=== PATIENT | female | born 1955 | race Caucasian/White ===

== ENCOUNTER 2022-09-21 09:13 | Outpatient (CLI) | payer MEDICARE, BC, SELFPAY ==
[2022-09-21 14:43] LABS: Cholesterol* 242 mg/dL (90-199); HDL Cholesterol* 81 mg/dL (>=50); LDL Cholesterol Calculated 136 mg/dL (<100); Triglycerides* 125 mg/dL (40-149)
== END 2022-09-21 09:14 | disposition home or self-care (01) ==
LOC: FRMREF 09:14
PROVIDERS: PCP Family Medicine; Visit Provider Family Medicine
DX: E78.5 Hyperlipidemia, unspecified (principal)
CPT/HCPCS: 80061

== ENCOUNTER 2023-10-16 08:40 | Outpatient (CLI) | payer MEDICARE, BC, SELFPAY ==
[2023-10-16] MEDS: REGADENOSON 0.4 MG/5 ML SYRINGE IVP (09:38)
[2023-10-16] MEDS: SODIUM CHLORIDE 0.9 % (FLUSH) 10 ML SYRINGE IVF (09:38)
[2023-10-16 10:10] VITALS: BP 186/98; PULSE 102
--- NOTE | 2023-10-16 10:46 | W.PM.STED ---
Stress Test Note Date Date of test: 10/16/23 Providers Primary care provider: Fay Pittman Stress test physician: Lars Moon Stress Test Note Stress test ordered: Lexiscan Indication for test: Chest pain Stress test medicine: Lexiscan Results discussion: Patient is a very nice 68-year-old female presents for the above test, cardiac stress test medical history form is reviewed entirely. Informed consent is obtained from the patient for the test after the risks benefits and side effects discussed in detail. Pretest EKG shows normal sinus rhythm, with ST wave changes ventricular rate is 84, rhythm is sinus. Blood pressure elevated at 163/109. Inferior ST wave depression of 1-2 mm is noted had baseline, standard Lexiscan protocol is done over a 5 minute. , maximum heart rate was 116, with a target predicted of 88%. Maximum blood pressure 186 on 98. She was asymptomatic and had no complaints. No significant worsening of her baseline abnormality of ST wave is notable. No dysrhythmias Impression: Negative electrographic portion of Lexiscan, baseline ST wave changes persisted. Follow up suggested: Await nuclear images, these will be read by nuclear Medicine, clinical correlation with these will be needed. Patient left this testing facility in good condition.
== END 2023-10-16 08:41 | disposition home or self-care (01) ==
LOC: STRESS 08:40
PROVIDERS: PCP Family Medicine; Visit Provider Family Medicine
DX: R07.9 Chest pain, unspecified (principal)
CPT/HCPCS: 78452; 93016; 93017; A9500; J2785

== ENCOUNTER 2024-04-24 10:55 | Outpatient (CLI) | payer MEDICARE, BC, SELFPAY | END 2024-04-24 10:56 | disposition home or self-care (01) | LOC: NFLDREF 04-27 09:27 | PROVIDERS: PCP Family Medicine; Referring Provider Family Medicine; Visit Provider Family Medicine | DX: I10 Essential (primary) hypertension (principal); E78.5 Hyperlipidemia, unspecified; M19.90 Unspecified osteoarthritis, unspecified site; Z11.59 Encounter for screening for other viral diseases | CPT/HCPCS: 80053; 80061; 82043; 82570; 86803 ==

== ENCOUNTER 2024-04-27 19:07 | Emergency (ER) | payer MEDICARE, BC, SELFPAY ==
[2024-04-27] VITALS (11 sets, daily range): BP systolic 138–188; BP diastolic 97–109; PULSE 93–122; RESP 20; TEMP 37; O2SAT 93–97; BMI 39.9
--- NOTE | 2024-04-27 19:30 | CRLHL7_ITS ---
For Patients: As a result of the Century Cures Act, medical imaging exams and procedure reports are released immediately into your electronic medical record. You may view this report before your referring provider. If you have questions, please contact your health care provider. INDICATION: Chest pain. TECHNIQUE: Portable AP chest. COMPARISON: None. FINDINGS: Lungs are clear. Normal heart size and pulmonary vascularity. No pleural effusion. No pneumothorax. IMPRESSION: Normal chest. Dictated by Dao Byrd MD @ 04/27/2024 8:13:25 PM (Electronically Signed)
--- NOTE | 2024-04-27 19:31 | ED_ITS ---
HPI - General Adult General Date Seen: 04/27/24 <Jenna Restrepo MD - Last Filed: 04/30/24 15:49> Chief complaint: Arrhythmia/Palpitations <Jenna Restrepo MD - Last Filed: 04/30/24 15:49> Stated complaint: heart issue <Jenna Restrepo MD - Last Filed: 04/30/24 15:49> Time Seen by Provider: 04/27/24 19:19 <Jenna Restrepo MD - Last Filed: 04/30/24 15:49> Source: patient <Jenna Restrepo MD - Last Filed: 04/30/24 15:49> Mode of arrival: ambulatory <Jenna Restrepo MD - Last Filed: 04/30/24 15:49> Limitations: no limitations <Jenna Restrepo MD - Last Filed: 04/30/24 15:49> History of Present Illness HPI narrative: Patient is a 68-year-old woman who presents for the evaluation of chest pain. She tells me that she had just finished [place] food for dinner, she stood up to clear the table and developed sudden onset of a band of pain around her lower chest, sensation of bruising in her mid chest and more burning pain that seemed to spread through both arms and up into her neck and both sides of her jaw. They immediately got in the car and came here and within 15 minutes or so symptoms had completely resolved and she now feels back to normal. She says she was also dizzy at the time, does not report pleuritic pain or shortness of breath. No history of similar pain. She has been in the midst of some adjustments of her blood pressure medicines, she says that she was on propanolol for a very long time and feels that her blood pressure was well controlled but her doctor has been trying to take her off of that and switch her to losartan which does not seem to be working as well. The dose was increased a couple of days ago and she is now completely off the propanolol. She had a stress test earlier this year which was normal. She says she was told 5 years ago that she was developing heart failure but more recently was told by the cigarette packing machine operator that he was not sure where that information came from that she had no evidence of heart failure and that her heart looked fine. She denies lower extremity swelling or pain, fevers or cough, abdominal or back pain, vomiting. She did have some diarrhea couple of days ago which she says was prompted by taking c holestyramine and Metamucil at the same time. No bloody stools. She does not smoke. She says that her mom had blood clots in her legs, she also had a stroke, she reports that her brother had clots in his heart requiring stents. She is status post cholecystectomy and hysterectomy. Medications reviewed, including baby aspirin daily. <Jenna Restrepo MD - Last Filed: 04/30/24 15:49> Related Data Home medications: Previous Rx's ?Medication ?Instructions ?Recorded fluticasone propionate 50 1 spray intranasal QDAY #16 grams 02/04/24 mcg/actuation nasal spray,suspension (Allergy Relief (fluticasone)) aspirin 81 mg tablet,delayed 81 mg PO QDAY #90 tabs 03/31/24 release celecoxib 100 mg capsule (Celebrex) 100 - 200 mg (1 - 2 x 100 mg) PO 03/31/24 BID PRN pain #90 caps cholestyramine (with sugar) 4 gram 4 g PO BID #378 grams 03/31/24 oral powder pravastatin 40 mg tablet 40 mg PO QPM #90 tabs 03/31/24 amlodipine 5 mg tablet 5 mg PO QDAY HTN #90 tabs 04/29/24 hydroxyzine HCl 25 mg tablet 25 mg PO QHS #14 tabs 04/29/24 propranolol 40 mg tablet 40 mg PO BID PRN tachycardia #60 04/29/24 tabs <Jenna Restrepo MD - Last Filed: 04/30/24 15:49> Allergies/adverse reactions: Allergies Allergy/AdvReac Type Severity Reaction Status Date / Time hydrocodone Allergy Intermediate Vomiting Verified 04/24/24 10:32 losartan Allergy Intermediate Cough Verified 04/24/24 10:32 metoprolol Allergy Intermediate diaphoresis Verified 04/24/24 10:32 lisinopril Allergy Mild Cough Verified 04/24/24 10:32 boland juice Allergy Severe Difficulty Uncoded 04/24/24 10:32 Breathing Hydrochlorothiazide / Allergy Unknown Dizziness Uncoded 04/24/24 10:32 triamterene <Jenna Restrepo MD - Last Filed: 04/30/24 15:49> Review of Systems Status of ROS: Reports: 10 or more systems reviewed and unremarkable except as noted in History and below <Jenna Restrepo MD - Last Filed: 04/30/24 15:49> [facility] Medical History: Medical History Post herpetic neuralgia ?B02.29 - Other postherpetic nervous system involvement (ICD-10) Tubular adenoma of colon ?D12.6 - Benign neoplasm of colon, unspecified (ICD-10) Migraine headache (04/22/10) ?G43.909 - Migraine, unspecified, not intractable, without status migrainosus (ICD-10) Mammogram declined ?Z53.20 - Procedure and treatment not carried out because of patient's decision for unspecified reasons (ICD-10) 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) ?Z91.89 - Other specified personal risk factors, not elsewhere classified (ICD-10) History of benign breast biopsy (08/02/10) ?Z98.890 - Other specified postprocedural states (ICD-10) History of bacterial pneumonia ?Z87.01 - Personal history of pneumonia (recurrent) (ICD-10) <Jenna Restrepo MD - Last Filed: 04/30/24 15:49> Surgical History: Surgical History History of hysterectomy (04/22/10) ?Z90.710 - Acquired absence of both cervix and uterus (ICD-10) History of colonoscopy with polypectomy ?Z98.890 - Other specified postprocedural states (ICD-10) ?Z86.010 - Personal history of colonic polyps (ICD-10) History of cholecystectomy (04/22/10) ?Z90.49 - Acquired absence of other specified parts of digestive tract (ICD- 10) History of appendectomy (08/02/10) ?Z90.49 - Acquired absence of other specified parts of digestive tract (ICD- 10) <Jenna Restrepo MD - Last Filed: 04/30/24 15:49> Family History: Family History Mother Breast cancer Stroke Father Coronary artery disease <Jenna Restrepo MD - Last Filed: 04/30/24 15:49> Social History: Social History Narrative: Does not use illicit drugs Former smoker Occasional alcohol consumption What is your current living situation?: I presently have a place to live Problems where you live: no known problems In the past 12 months, utilities in danger of being shut off: no In past 12 months, lack of transportation kept you from medical appts, meetings, work, or getting things needed for daily living: no In the past 12 mos, have been you worried that your food would run out before you had money to buy more?: never true In the past 12 mos, the food you bought just didn't last and you didn't have money to buy more?: never true Smoking Status: Never smoker How often do you have a drink containing alcohol: 4 or more times a week AUDIT-C Alcohol total score: 4 Non-prescribed substance use: denies use How often does anyone, including family, friends and others, physically hurt you : never How often does anyone, including family, friends and others, insult or talk down to you: never How often does anyone, including family, friends and others, threaten you with harm: never How often does anyone, including family, friends and others, scream or curse at you: never Little interest or pleasure in doing things: not at all Feeling down, depressed, or hopeless: not at all <Jenna Restrepo MD - Last Filed: 04/30/24 15:49> Exam Narrative: Exam Narrative: Vital signs as noted above. In general, an alert, well-appearing patient. Head: Normocephalic, atraumatic. Eyes: Pupils are equal reactive. Extraocular movements are full. Conjunctivae are normal. ENT: Mucous membranes are moist. Throat is normal. Neck: Supple without lymphadenopathy. Heart: Mildly tachycardic and regular, no murmur. Lungs: Clear bilaterally. No increased work of breathing, crackles or wheezes. Abdomen: Soft and nontender. No organomegaly. Extremities: Well perfused. No edema. No calf tenderness. Pulses intact. Neurologic: Patient is alert and oriented to person and place. Speech is fluent. Face is symmetric. Moves all extremities equally. Affect: Normal. Skin: Warm and dry. Well perfused. <Jenna Restrepo MD - Last Filed: 04/30/24 15:49> Const: Vital Signs, click to edit/add: Vital Signs - 24 hr 04/27/24 19:16 04/27/24 19:17 04/27/24 19:19 Temperature 98.6 F Pulse Rate 115 H 109 H Pulse Rate [Pulse Oximeter] 122 H Respiratory Rate 20 Blood Pressure 188/109 H Blood Pressure [Ri ght Upper Arm] 138/97 H Pulse Oximetry 93 94 95 Oxygen Delivery Me thod Room Air 04/27/24 19:30 04/27/24 19:30 04/27/24 19:45 Temperature Pulse Rate 105 H 105 H Pulse Rate [Pulse Oximeter] Respiratory Rate Blood Pressure Blood Pressure [Ri ght Upper Arm] Pulse Oximetry 97 95 95 Oxygen Delivery Me thod 04/27/24 20:00 04/27/24 20:15 04/27/24 20:30 Temperature Pulse Rate 100 93 95 Pulse Rate [Pulse Oximeter] Respiratory Rate Blood Pressure Blood Pressure [Ri ght Upper Arm] Pulse Oximetry 94 94 93 Oxygen Delivery Me thod 04/27/24 20:45 04/27/24 21:00 04/27/24 21:15 Temperature Pulse Rate 94 95 98 Pulse Rate [Pulse Oximeter] Respiratory Rate Blood Pressure Blood Pressure [Ri ght Upper Arm] Pulse Oximetry 94 94 97 Oxygen Delivery Me thod <Jenna Restrepo MD - Last Filed: 04/30/24 15:49> Vital Signs, click to edit/add: Vital Signs - 24 hr 04/27/24 19:16 04/27/24 19:17 04/27/24 19:19 Temperature 98.6 F Pulse Rate 115 H 109 H Pulse Rate [Pulse Oximeter] 122 H Respiratory Rate 20 Blood Pressure 188/109 H Blood Pressure [Ri ght Upper Arm] 138/97 H Pulse Oximetry 93 94 95 Oxygen Delivery Me thod Room Air 04/27/24 19:30 04/27/24 19:30 04/27/24 19:45 Temperature Pulse Rate 105 H 105 H Pulse Rate [Pulse Oximeter] Respiratory Rate Blood Pressure Blood Pressure [Ri ght Upper Arm] Pulse Oximetry 97 95 95 Oxygen Delivery Me thod 04/27/24 20:00 04/27/24 20:15 04/27/24 20:30 Temperature Pulse Rate 100 93 95 Pulse Rate [Pulse Oximeter] Respiratory Rate Blood Pressure Blood Pressure [Ri ght Upper Arm] Pulse Oximetry 94 94 93 Oxygen Delivery Me thod 04/27/24 20:45 04/27/24 21:00 04/27/24 21:15 Temperature Pulse Rate 94 95 98 Pulse Rate [Pulse Oximeter] Respiratory Rate Blood Pressure Blood Pressure [Ri ght Upper Arm] Pulse Oximetry 94 94 97 Oxygen Delivery Me thod <Lars Moon MD - Last Filed: 04/27/24 21:49> Documenting provider has reviewed patient's vital signs: yes <Jenna Restrepo MD - Last Filed: 04/30/24 15:49> Course Course ED Course: An EKG on arrival by my review shows sinus tachycardia, she has some PVCs. She has poor R-wave progression, a mm of ST-elevation in AVR but no significant ST depression in the precordium. Compared to an EKG from August of 2023, there are no significant changes aside from PVCs on this EKG. Diagnostic considerations somewhat broad at this time, include acute coronary syndrome or angina, pulmonary embolism, aortic dissection, gastroesophageal reflux or esophageal spasm, gastritis or pancreatitis, perforated viscus, pneumothorax among others. Will order a single-view chest, initial troponin, plan to repeat that at 2 hours. D-dimer as well to screen for possible pulmonary embolism as well as consideration of aortic dissection. She is hypertensive here as well as mildly tachycardic, she notes that it would not be unusual for her to have a fast heart rate given the events of the past hour, recent discontinuation of propranolol may be contributing to this as well. Given that she is pain-free now, dissection or acute coronary syndrome would see little less likely but will see how labs look. EKG is repeated at 9:30 p.m., this shows normal sinus rhythm, no acute changes notable, with a heart rate of 89, her follow-up troponin was 0.01. This gives us a good delta, I think excludes a myocardial injury. I went in and talked to her, she was having no chest pain, she did talk about the labile blood pressure that she has in her intolerance to medications, I suggested that maybe seeing a cigarette packing machine operator would be helpful. She has not seen 1 for a number of years, she was very comfortable with this in going home at this time. <Jenna Restrepo MD - Last Filed: 04/30/24 15:49> An EKG on arrival by my review shows sinus tachycardia, she has some PVCs. She has poor R-wave progression, a mm of ST-elevation in AVR but no significant ST depression in the precordium. Compared to an EKG from August of 2023, there are no significant changes aside from PVCs on this EKG. Diagnostic considerations somewhat broad at this time, include acute coronary syndrome or angina, pulmonary embolism, aortic dissection, gastroesophageal reflux or esophageal spasm, gastritis or pancreatitis, perforated viscus, pneumothorax among others. Will order a single-view chest, initial troponin, plan to repeat that at 2 hours. D-dimer as well to screen for possible pulmonary embolism as well as consideration of aortic dissection. She is hypertensive here as well as mildly tachycardic, she notes that it would not be unusual for her to have a fast heart rate given the events of the past hour, recent discontinuation of propranolol may be contributing to this as well. Given that she is pain-free now, dissection or acute coronary syndrome would see little less likely but with develops foot. EKG is repeated at 9:30 p.m., this shows normal sinus rhythm, no acute changes notable, with a heart rate of 89, her follow-up troponin was 0.01. This gives us a good delta, I think excludes a myocardial injury. I went in and talked to her, she was having no chest pain, she did talk about the labile blood pressure that she has in her intolerance to medications, I suggested that maybe seeing a cigarette packing machine operator would be helpful. She has not seen 1 for a number of years, she was very comfortable with this in going home at this time. <Lars Moon MD - Last Filed: 04/27/24 21:49> Vital Signs Vital signs: Initial Vital Signs Pulse Rate 115 H 04/27/24 19:16 Blood Pressure 188/109 H 04/27/24 19:16 Blood Pressure Mean 135 H 04/27/24 19:16 Pulse Oximetry 93 04/27/24 19:16 Vital Signs Pulse Rate 115 H 04/27/24 19:16 Blood Pressure 188/109 H 04/27/24 19:16 Pulse Oximetry 93 04/27/24 19:16 Temperature 98.6 F 04/27/24 19:19 Pulse Rate 98 04/27/24 21:15 Respiratory Rate 20 04/27/24 19:19 Blood Pressure 138/97 H 04/27/24 19:19 Pulse Oximetry 97 04/27/24 21:15 Oxygen Delivery Method Room Air 04/27/24 19:19 <Jenna Restrepo MD - Last Filed: 04/30/24 15:49> Initial Vital Signs Pulse Rate 115 H 04/27/24 19:16 Blood Pressure 188/109 H 04/27/24 19:16 Blood Pressure Mean 135 H 04/27/24 19:16 Pulse Oximetry 93 04/27/24 19:16 Vital Signs Pulse Rate 115 H 04/27/24 19:16 Blood Pressure 188/109 H 04/27/24 19:16 Pulse Oximetry 93 04/27/24 19:16 Temperature 98.6 F 04/27/24 19:19 Pulse Rate 98 04/27/24 21:15 Respiratory Rate 20 04/27/24 19:19 Blood Pressure 138/97 H 04/27/24 19:19 Pulse Oximetry 97 04/27/24 21:15 Oxygen Delivery Method Room Air 04/27/24 19:19 <Lars Moon MD - Last Filed: 04/27/24 21:49> Medical Decision Making Lab Data Labs: Lab Results 04/27/24 04/27/24 04/27/24 Range/Units 19:25 19:31 21:30 WBC 7.44 (4.50-11.00) K/uL RBC 4.94 (4.00-5.20) m/uL Hgb 15.0 (12.0-16.0) gm/dL Hct 44.9 (33.0-51.0) % MCV 91 (80-100) fL MCH 30 (26-34) pg MCHC 33 (32-36) gm/dL RDW Coeff of Melani 13.0 (11.5-15.5) % Plt Count 267 (140-440) K/uL Neut % (Auto) 50.6 (42.0-72.0) % Lymph % (Auto) 37.8 (20-44) % [place] % (Auto) 8.9 (0.0-11.0) % Eos % (Auto) 2.2 (0.0-7.0) % Baso % (Auto) 0.5 (0.0-3.0) % Neut # (Auto) 3.77 (1.7-7.0) K/uL Lymph # (Auto) 2.81 (0.90-2.90) K/uL [place] # (Auto) 0.70 (0.00-0.90) K/UL Eos # (Auto) 0.16 (0.00-0.50) K/uL Baso # (Auto) 0.04 (0.00-0.30) K/uL Abs Immat Gran (auto) 0.00 (0.00-0.30) K/uL Imm/Tot Granulo (auto) 0.0 % D-Dimer Quant (PE/DVT) 0.36 (0.00-0.50) ug/ml Sodium 138 (135-149) mmol/L Potassium 3.4 L (3.6-5.1) mmol/L Chloride 104 (96-114) mmol/L Carbon Dioxide 26 (20-32) mmol/L Anion Gap 8 (7-15) mEq/L BUN 16 (7-30) mg/dL Creatinine 0.8 (0.5-1.5) mg/dL Estimated Creat Clear 57.83 Estimated GFR 81 ml/min Glucose 146 H (60-115) mg/dL Calcium 9.5 (8.4-10.6) mg/dL Total Bilirubin 0.6 (0.1-1.5) mg/dL Direct Bilirubin 0.3 (0.0-0.5) mg/dL AST 32 (12-35) U/L ALT 34 (4-35) U/L Alkaline Phosphatase 96 (40-150) U/L C-Reactive Protein < 0.5 L (0.5-1.0) mg/dL Total Protein 7.5 (6.0-8.3) g/dL Albumin 4.6 (3.3-5.0) g/dL Lipase 254 (23-300) U/L POC Troponin I 0.00 L 0.01 (0.01-0.04) ng/ml <Jenna Restrepo MD - Last Filed: 04/30/24 15:49> Lab Results 04/27/24 04/27/24 04/27/24 Range/Units 19:25 19:31 21:30 WBC 7.44 (4.50-11.00) K/uL RBC 4.94 (4.00-5.20) m/uL Hgb 15.0 (12.0-16.0) gm/dL Hct 44.9 (33.0-51.0) % MCV 91 (80-100) fL MCH 30 (26-34) pg MCHC 33 (32-36) gm/dL RDW Coeff of Melani 13.0 (11.5-15.5) % Plt Count 267 (140-440) K/uL Neut % (Auto) 50.6 (42.0-72.0) % Lymph % (Auto) 37.8 (20-44) % [place] % (Auto) 8.9 (0.0-11.0) % Eos % (Auto) 2.2 (0.0-7.0) % Baso % (Auto) 0.5 (0.0-3.0) % Neut # (Auto) 3.77 (1.7-7.0) K/uL Lymph # (Auto) 2.81 (0.90-2.90) K/uL [place] # (Auto) 0.70 (0.00-0.90) K/UL Eos # (Auto) 0.16 (0.00-0.50) K/uL Baso # (Auto) 0.04 (0.00-0.30) K/uL Abs Immat Gran (auto) 0.00 (0.00-0.30) K/uL Imm/Tot Granulo (auto) 0.0 % D-Dimer Quant (PE/DVT) 0.36 (0.00-0.50) ug/ml Sodium 138 (135-149) mmol/L Potassium 3.4 L (3.6-5.1) mmol/L Chloride 104 (96-114) mmol/L Carbon Dioxide 26 (20-32) mmol/L Anion Gap 8 (7-15) mEq/L BUN 16 (7-30) mg/dL Creatinine 0.8 (0.5-1.5) mg/dL Estimated Creat Clear 57.83 Estimated GFR 81 ml/min Glucose 146 H (60-115) mg/dL Calcium 9.5 (8.4-10.6) mg/dL Total Bilirubin 0.6 (0.1-1.5) mg/dL Direct Bilirubin 0.3 (0.0-0.5) mg/dL AST 32 (12-35) U/L ALT 34 (4-35) U/L Alkaline Phosphatase 96 (40-150) U/L C-Reactive Protein < 0.5 L (0.5-1.0) mg/dL Total Protein 7.5 (6.0-8.3) g/dL Albumin 4.6 (3.3-5.0) g/dL Lipase 254 (23-300) U/L POC Troponin I 0.00 L 0.01 (0.01-0.04) ng/ml <Lars Moon MD - Last Filed: 04/27/24 21:49> Discharge Plan Discharge Clinical Impression: Chest pain <Jenna Restrepo MD - Last Filed: 04/30/24 15:49> Patient Disposition: Home, Self-Care <Jenna Restrepo MD - Last Filed: 04/30/24 15:49> Condition: Stable <Jenna Restrepo MD - Last Filed: 04/30/24 15:49> Instructions: Chest Pain (DC) <Jenna Restrepo MD - Last Filed: 04/30/24 15:49> Additional Instructions: Your evaluation here today is reassuring. There is no evidence to suggest that your symptoms were related to a heart attack, blood clot, or other vascular problem. Continue to work on your blood pressure control with primary doctor. I would recommend follow-up with your primary care doctor in the next 1-2 weeks for recheck. If you are continuing to have symptoms, it may be necessary to consider doing another stress test. I would also recommend a trial of a proton pump inhibitor such as Prilosec. This can be purchased [id number] and treats acid reflux. One possible cause of your symptoms with the esophageal spasm. If you have recurrent severe persistent symptoms, return any time to the emergency department. <Jenna Restrepo MD - Last Filed: 04/30/24 15:49> Prescriptions: No Action amlodipine 5 mg tablet 5 mg PO QDAY Qty: 90 3RF propranolol 40 mg tablet 40 mg PO BID PRN (Reason: tachycardia) Qty: 60 0RF hydroxyzine HCl 25 mg tablet 25 mg PO QHS Qty: 14 0RF aspirin 81 mg tablet,delayed release (DR/EC) 81 mg PO QDAY Qty: 90 3RF pravastatin 40 mg tablet 40 mg PO QPM Qty: 90 3RF celecoxib [Celebrex] 100 mg capsule 100 - 200 mg PO BID PRN (Reason: pain) Qty: 90 3RF cholestyramine (with sugar) 4 gram powder 4 g PO BID Qty: 378 12RF Rx Instructions: administer w/meal; avoid other meds within 1hr before or 4-6hr after dose fluticasone propionate [Allergy Relief (fluticasone)] 50 mcg/actuation spray,suspension 1 spray intranasal QDAY Qty: 16 12RF Rx Instructions: administer into each nostril <Jenna Restrepo MD - Last Filed: 04/30/24 15:49> Follow Up/Referrals: Jenna Maki MD [Primary Care Provider] - <Jenna Restrepo MD - Last Filed: 04/30/24 15:49> Stand Alone Forms: [employer] Info Instructions <Jenna Restrepo MD - Last Filed: 04/30/24 15:49>
--- OUTSIDE RECORDS SUMMARY | 2024-04-27 19:40 | XMS_ITS | Continuity of Care Document ---
Author Organization [facility] Address [address] [address] [place] [address] Phone Care Team Providers Care Early Childhood Education Worker Name Role Phone Fracisco Neely MD Unavailable Unavailable Allergies, Adverse Reactions, Alerts Substance Reaction Status Criticality TAPE, PERMEABLE ADHESIVE Active No Information Medications Medication Instructions Dosage Effective Dates (start - stop) Status Comments amlodipine 10 mg tablet take 1 tablet by oral route every day 10 MG - Active MAGNESIUM (unknown strength) take 1 by Oral route every day Not Available - Active CALCIUM CARBONATE/VITAMIN D3 (unknown strength) take 1 Capsule by Oral route every day Not Available - Active aspirin 81 mg tablet,delayed release take 1 tablet by oral route every day 81 MG - Active Procedures Procedure Date Offic/outpt E&m Estab Low-mod 7 Offic/outpt E&m Estab Low-mod 7 Offic/outpt E&m Estab Low-mod 6 Offic/outpt E&m Estab Mod-hi 2 16 Colonoscopy Flex; W/bx 1/mx Level Iv-surg Path Gross/micro 16 Offic Cons New/estab Mod Routine Serum Collection Advance Directives Directive Yes / No Effective Date File Name No Information Encounters Encounter Description Practice Location Reason(s) For Visit Diagnoses Date Provider Providers Copied on Encounter [facility], [address] [address], [place], [place], [id number], [place] tel:[phone] [facility] No Information 9 Florinda Yap. [address], [place], [place], [id number] , [place]. tel:[phone] [facility], [address] [address], [place], [place], [id number], tel:[phone] [facility] GI Symptoms or Concerns (chief complaint) Irritable bowel syndrome with diarrheaDietary counseling and surveillance 7 Haley Montiel . [address], [place], [place], [id number] , [place]. [phone] Referring Provider: Referral Self, USE FOR SELF REFERRALS. Offic/outpt E&m Estab [facility], [address] [address], [place], [place], [id number], [place] tel:[phone] [facility] GI Symptoms or Concerns (chief complaint) Irritable bowel syndrome with diarrheaDietary counseling and surveillance 7 Haley Montiel . [address], [place], [place], [address] , [place]. [phone] Referring Provider: Referral Self, USE FOR SELF REFERRALS. [facility], [address] [address], [place], [place], [id number], [place] tel:[phone] [facility] GI Symptoms or Concerns (chief complaint) Irritable bowel syndrome with diarrheaDietary counseling and surveillanceEleva pelon blood-pressure reading, w/o diagnosis of htn 6 Haley Montiel . [address], [place], [place], [id number] , [place]. [phone] Offic/outpt E&m Estab Mod-hi 2 [facility], [address] [address], [place], [place], [address], [place] tel:[phone] [facility] GI Symptoms or Concerns (chief complaint) Irritable bowel syndrome with diarrheaDietary counseling and surveillanceClif chilel (primary) hypertension 6 Haley Montiel . [address], [place], [id number] , [place]. tel: [phone] [facility], [address] [address], [place], [id number], [place] tel:[phone] [facility] Irritable bowel syndrome with diarrheaAbnormal findings on dx imaging of prt digestive tractDiverticulos is of large intestine without hemorrhageBenign neoplasm of descending colonIrritable bowel syndrome with diarrheaDvrtclos of lg int w/o perforation or abscess w/o bleeding 6 Haley Montiel . [address], [place], [id number] , [place]. tel: [phone] Offic Cons New/estab Mod [facility], [address] [address], [place], [id number], [place] tel:[phone] [facility] GI Symptoms or Concerns (chief complaint) Abnormal finding on GI tract imagingIrritable bowel syndrome with diarrheaDietary counseling and surveillance 6 Haley Montiel . [address], [place], [id number] , [place]. tel: [phone] Family History Family Member Type Diagnosis Age At Onset Mother Problem (finding) peptic ulceration Father Problem (finding) alcoholism Mother Problem (finding) alcoholism Daughter Problem (finding) Alive and well Mother Problem (finding) malignant neop lasm of breast in first degree relative Mother Problem (finding) Colon polyps Father Problem (finding) Son Problem (finding) Irritable bowel disease Mother Problem (finding) Son Problem (finding) Alive and well Payers Payer name Insurance type Covered libertarian ID Authoriza tion(s) No Information Social History Type Description Quantity Date Captured Comments Sex Female Smoking Status No Information Chief Complaint And Reason For Visit No Information Reason For Referral Reason For Referral No Information Plan Of Treatment Date Type Action Status Goal Lifestyle education regardin g diet completed Goal Lifestyle education regardin g diet completed Goal Lifestyle education regardin g diet completed Goal Lifestyle education regardin g diet completed Goal Lifestyle education regardin gian diet completed Referral Ordered: Colonoscopy Appointment date/timeframe: 06/29/2016 ordered Referral Ordered: follow-up visit 2 Months Appointment date/timeframe: 2 Months ordered History Of Present Illness Encounter Date Complaint History Of Preskhari nt Illness GI Symptoms or Concerns This is a 61-year-old woman who presents in followup for diarrhea predominant irritable bowel syndrome. She has had loose stools for over 25 years, especially after her cholecystectomy. There was a questionable distal inflammatory change in the colon on a CT scan, although she had a followup colonoscopy that was unremarkable aside from a tubular adenoma. Colon biopsies were normal. She did not respond to cholestyramine. There was a brief response to dicyclomine, but then it lost efficacy. Hyoscyamine was also ineffective for her. She actually responds best to Imodium. She will take two Imodium and then she will not have symptoms for good 12 hours. She does not have any constipation after that. She reports excellent fiber intake in general and avoids processed foods. She has been working hard on avoiding fat especially in the morning. She also finds that avoiding eggs and dairy products leads to less urgent stools. She has lost 12 pounds since last September with her dietary ch GI Symptoms or Concerns This is a 61-year-old woman, who presents in followup for irritable bowel syndrome. She has had over 25 years of loose stools, particularly after her cholecystectomy. At one point, a CT scan showed some inflammation in the distal colon, although her followup colonoscopy was unremarkable aside from a tubular adenoma. She had normal colon biopsies and did not respond to cholestyramine. She did respond to dicyclomine initially, typically taking it twice daily with an extra dose around noon if needed. She ultimately stopped it since she did not feel that the efficacy was the same as it was initially. She also experienced some dry mouth, dry eyes, and fatigue with the medication. She took another trip to [facility] and restarted it two pills twice daily with Imodium as needed. The Imodium works for diarrhea, but unfortunately will cause constipation and then she will have cycling between constipation and diarrhea. She wonders if starting coffee again has worsened symptoms. She recent GI Symptoms or Concerns This is a 60-year-old woman who presents in followup. I last saw her in June. She has had over 25 years of loose stools, especially after cholecystectomy. She responds to Imodium, but it causes constipation at higher doses. She has been unable to travel due to significant urgency and cramping. There was a recent CT scan showing inflammation in the sigmoid, distal transverse and descending colon. It was found on an ER visit, and she was started on antibiotics. It was felt that it was an acute infection and her followup colonoscopy was normal aside from a tubular adenoma. Biopsies were negative for microscopic colitis. She did not respond to cholestyramine. Since last visit, she started dicyclomine and is taking it twice daily. It is helping significantly. She will occasionally take a third dose around noon if she is going somewhere. She has occasional constipation now, but feels that this is a huge benefit over the diarrhea symptoms. She is not requiring any laxatives. Oc GI Symptoms or Concerns This is a 60-year-old woman who presents in followup. She has had chronic loose stools for over 25 years, particularly after her cholecystectomy. She has had a response in the past to Imodium, but it can cause constipation at higher doses. She has significant urgency and cramping which has been very prohibitive with travel. She had had a recent CT scan showing some inflammation in the sigmoid colon as well as the distal transverse and descending. This was on an ER visit, and she was started on antibiotics. She feels that it was an acute infection at that time. Her colonoscopy last week was unremarkable aside from a tubular adenoma. Biopsies were negative for microscopic colitis. She tried dicyclomine before events or as needed, but did not have a long trial of twice-daily or [id number]-[id number]-rdjqr dosing. She has not seen a significant benefit with it. This has been very frustrating because she recently attended her son's wedding in [place] and was unable to travel much beyond the GI Symptoms or Concerns This is a 60-year-old woman who presents regarding acute and chronic symptoms. For over 25 years, she has had loose stools. This typically occurs after eating and she will experience urgency and occasional cramping. This particularly occurs when she is traveling or outside the house. Stools can be watery, but there is no blood. Imodium typically helps, but actually causes constipation. She also tried a product called Digestive Advantage, which worked, but again constipated her. In the past, she reports being treated with a medicine for bile salt diarrhea. She does not recall if it was very helpful. She had a cholecystectomy about 25 years ago.She had an episode of constipation recently. She then consumed coffee, which helped to cause some loose stools. However, she then developed severe pain followed by bleeding the next day. She presented to the ER where she was found to have inflammation in the sigmoid colon and then area of numerous diverticula. There was also some dis Functional Status Date Functional Assessmen t No Information Instructions Date Instruction Additional Infor dionicio She will continue to avoid dietary triggers. I advised that she write down foods that she consumes on bad days and to compare this list to foods that are to be avoided in the low fructose and low FODMAPs diets. If she finds a clear trend, then she is welcome to avoid that food. We also discussed standardizing fiber intake to about 20 to 25 g per day. We will plan to follow up on an as-needed basis. If symptoms worsen such that she is having more significant diarrhea, we could consider an eventual CT enterography. Related to Irritable bowel syndrome with diarrhea Lifestyle education regarding di et Related to Dietary counseling and surveillance I gave her a handout on the fructose intolerance diet and the low-FODMAPS diet. She will look into this further to see if they would be helpful for her symptoms. We will initiate a trial of hyoscyamine to take up to four times daily as needed instead of the dicyclomine to see if it is more effective and better tolerated. I would like to see her again in three months to follow up on her symptoms. Down the road, we could consider a trial of tricyclic antidepressant for her loose stools. She is welcome to use Imodium as needed, although I would watch carefully for constipation. Should symptoms worsen, we could consider a CT enterography at some point. We also discussed the probiotics have been helpful for some patients and she is going to look into a possible trial of Florastor. Related to Irritable bowel syndrome with diarrhea Low FODMAPS diet Related to Irri table bowel syndrome with diarrhea Fructose Intolerance Diet Relate d to Irritable bowel syndrome with diarrhea Lifestyle education regarding di et Related to Dietary counseling and surveillance We will continue wit h dicyclomine. I discussed that it is most effective when taken before meals. She may also take it before events, either regularly or as needed. We will plan to follow up in about six months' time. I have asked her to e-mail me if any symptoms change. We had previously discussed the possibility for tricyclics at last visit, although I do not think this is necessary. If symptoms worsen, I would consider a CT enterography to evaluate for Crohn's disease. Related to Irritable bowel syndrome with diarrhea Lifestyle education regarding di et Related to Dietary counseling and surveillance I would like her to start 1 to 2 Imodium each morning and 1 after each loose stool, up to 8 per day. Even if she needs just 1/2 pill per day, it could give significant benefit. I would like her to contact me with an update on that. Then, she could consider restarting dicyclomine before meals or events or as needed to see if the combination is helpful. Down the road, for ongoing issues, we discussed potentially starting nortriptyline therapy with slow up titration to control the symptoms. We also discussed the possibility for CT versus MR enterography. I would like to see her again in about 2 months, but I would like some updates in the coming weeks with the treatments noted above. We may even start nortriptyline before her next appointment, if she is failing other treatments. Related to Irritable bowel syndrome with diarrhea Lifestyle education regarding di et Related to Dietary counseling and surveillance Diverticulosis/Diverticulitis Re lated to Diverticulosis of large intestine without hemorrhage High Fiber Diet Related to Diver ticulosis of large intestine without hemorrhage Colon Cancer Prevention Related to Diverticulosis of large intestine without hemorrhage Colon Polyps Related to Diver ticulosis of large intestine without hemorrhage I will check a thyro id cascade today. I recommend a colonoscopy, which will be performed at least six weeks after completion of antibiotics. This would include colon biopsies and evaluation of the terminal ileum. In the meanwhile, we will initiate a trial of dicyclomine, antispasmodic before meals or events or on an as-needed basis. I would like to see her again in about eight weeks in followup, and to review her response to treatment. I have asked her to call me in the next couple of weeks with an update. Related to Abnormal finding on GI tract imaging Colonoscopy Lifestyle education regarding di et Related to Dietary counseling and surveillance Assessments Type Assessment Date No Information Patient Care Teams Name Effective Dates (start - stop) Status Members No Information
--- OUTSIDE RECORDS SUMMARY | 2024-04-27 19:40 | XMS_ITS | Continuity of Care Document ---
Author Organization [facility] Address [address] [address] [place] [address] Phone Care Team Providers Care Gauger Chief Name Role Phone Fracisco Neely MD Unavailable [...] Diagnoses Date Provider Providers Copied on Encounter [facility], [address] [address], [place], [place], [id number], [place] tel:[phone] [facility] No Information 9 Florinda Yap. [address], [place], [place], [id number] , [place]. tel:[phone] [facility], [address] [address], [place], [place], [id number], tel:[phone] [facility] GI Symptoms or Concerns (chief complaint) Irritable bowel syndrome with diarrheaDietary counseling and surveillance 7 Haley Montiel . [address], [place], [place], [id number] , [place]. [phone] Referring Provider: Referral Self, USE FOR SELF REFERRALS. Offic/outpt E&m Estab [facility], [address] [address], [place], [place], [id number], [place] tel:[phone] [facility] GI Symptoms or Concerns (chief complaint) Irritable bowel syndrome with diarrheaDietary counseling and surveillance 7 Haley Montiel . [address], [place], [place], [id number] , [place]. [phone] Referring Provider: Referral Self, USE FOR SELF REFERRALS. [facility], [address] [address], [place], [place], [id number], [place] tel:[phone] [facility] GI Symptoms or Concerns (chief complaint) Irritable bowel syndrome with diarrheaDietary counseling and surveillanceEleva pelon blood-pressure reading, w/o diagnosis of htn 6 Haley Montiel . [address] [address], [place], [place], [address] , [place]. [phone] Offic/outpt E&m Estab Mod-hi 2 [facility], [address] [address], [place], [place], [id number], [place] tel:[phone] [facility] GI Symptoms or Concerns (chief complaint) Irritable bowel syndrome with diarrheaDietary counseling and surveillanceClif chilel (primary) hypertension 6 Haley Montiel . [address] [address], [place], [id number] , [place]. tel: [phone] [facility], [address] [address], [place], [id number], [place] tel:[phone] [facility] Irritable bowel syndrome with diarrheaAbnormal findings on dx imaging of prt digestive tractDiverticulos is of large intestine without hemorrhageBenign neoplasm of descending colonIrritable bowel syndrome with diarrheaDvrtclos of lg int w/o perforation or abscess w/o bleeding 6 Haley Montiel . [address] [facility], [place], [id number] , [place]. tel: [phone] Offic Cons New/estab Mod [facility], [address] [address], [place], [id number], [place] tel:[phone] [facility] GI Symptoms or Concerns (chief complaint) Abnormal finding on GI tract imagingIrritable bowel syndrome with diarrheaDietary counseling and surveillance 6 Haley Montiel . [address] [facility] [address] [address], [place], [id number] , [place]. tel: [phone] Family History Family Member Type Diagnosis Age [...] well Payers Payer name Insurance type Covered constitution party ID Authoriza tion(s) No Information Social History [...] the medication. She took another trip to [facility] and restarted it two pills twice daily [...] have a long trial of twice-daily or [id number] dosing. She has not seen a significant [...]
--- OUTSIDE RECORDS SUMMARY | 2024-04-27 19:40 | XMS_ITS | Clinical Summary ---
Author Organization [facility] [facility] Address [place], [place] [address] Care Team Providers Care Analytics Developer Name Role Phone [facility] Primary Care Provider Erin Pulido MD Unavailable [phone] Allergies Active Allergy Reactions Criticality Noted Date Comments Losartan Other - Describe In Comment Field 11/08/2016 doesn't feel right Wdvxtud-Xli-Blv Reductase Inhibitors Myalgia 11/08/2016 Hydrocodone-Acetaminop hen Nausea Only 01/28/2009 Medications Medication Sig Dispensed Refills Start Date End Date Status VITAMIN B COMPLEX TAB 0 01/28/2009 Active fluticasone, 50 mcg per actuation, nasal (FLONASE) 50 mcg/Actuation nasal spray USE 1 TO 2 SPRAYS INTO EACH NOSTRIL ONCE DAILY 16 g 6 03/14/2010 Active aspirin 81 mg tablet Take 1 tablet by mouth once daily with a meal. 0 04/22/2015 Active pravastatin (PRAVACHOL) 20 mg tabletIndications:Hy perlipidemia, unspecified hyperlipidemia type TAKE 1 TABLET BY MOUTH AT BEDTIME. 90 tablet 01/28/2019 Active medication order composer Multivitamin take 1 tablet once daily 0 04/05/2020 Active medication order composer Presservision eye Vitamin take 1 tablet once daily 0 04/05/2020 Active atenoloL (TENORMIN) 50 mg tablet Take 1 Tablet by mouth once daily. 08/10/2021 Active Active Problems Problem Noted Date Diagnosed Date WARTS, VIRAL 11/29/2000 PAIN, ABDOMINAL, LEFT LOWER QUADRANT HTN (hypertension) Obesity Family History Medical History Relation Name Comments Genetic Other 1 cancer~hyperten irwin~irregular heart beat~arthritis Genetic Other 2 cancer~hyperten irwin~irregular heart beat~arthritis~Patient/parent reports no family history of malignant hyperthermia or other anesthetic complications. Relation Name Status Comments Other 1 Other 2 Social History Tobacco Use Types Packs/Day Years Used Date Smoking Tobacco: Former Cigarettes 3 15 Smokeless Tobacco: Never Tobacco Cessation:Counseling Given: Yes Comments:pt reports she smoked from age [age], up to 3 ppd Alcohol Use Standard Drinks/Week Comments Not Currently 0 (1 standard drink = 0.6 oz pur e alcohol) Alcoholic Drinks/day: 0 Social Connections Answer Date Recorded Frequency of Communication with Friends and Fami ly Not on file 10/08/2021 Financial Resource Strain Answer Date R ecorded Difficulty of Paying Living Expenses Not on file 10/08/2021 Difficulty of Paying Living Expenses Not on file 10/08/2021 Sex and Gender Information Value Date Recorded Sex Assigned at Female 08/22/2021 10:16 AM LIGHT COIL WINDER Gender Identity Female 08/22/2021 10:16 AM LIGHT COIL WINDER Sexual Orientation Straight 08/22/2021 10 :16 AM LIGHT COIL WINDER Obstetrics History Last Filed Vital Signs Vital Sign Reading Time Taken Comments Blood Pressure 128/76 08/24/2021 2:26 PM LIGHT COIL WINDER tow er Pulse 61 08/24/2021 2:26 PM LIGHT COIL WINDER Temperature 36.7 ??C (98.1 ??F) 12/14/2018 9:56 AM CS T Respiratory Rate 16 12/14/2018 12:07 PM LIGHT COIL WINDER Oxygen Saturation 96% 08/24/2021 2:26 PM LIGHT COIL WINDER Inhaled Oxygen Concentration - - Weight 97.5 kg (215 lb) 08/24/2021 2:26 PM LIGHT COIL WINDER Height 174 cm (5' 8.5) 04/05/2020 8:47 AM CDT Body Mass Index 32.22 04/05/2020 8:47 AM CDT Plan of Treatment Health Maintenance Due Date Last Done Comments Tdap 1968 Depression screening for age 12+ 1969 Hepatitis C screening for age 18-79 1975 Tetanus booster 1977 Colonoscopy through age 75 2002 Mammogram for age 45-75 2002 08/30/2001 Zoster (shingles) series for age 50+ (1 of 2) 2007 BMI (ht and wt on same day) for age 18+ 04/05/2021 0 04/05/2020 Lipids for age 45-75 11/09/2021 11/09/2016, 12/24/19 10 DEXA/DXA scan for age 65+ 2022 Pneumococcal series for age 65+ (1 of 1 - PCV) 2022 COVID-19 vaccine series (3 - 2022-24 season) 2023 12/23/2020, 11/25/2020 Influenza for age 65+ 06/08/2024 Procedures Procedure Name Priority Date/Time Associated Diagnosis Comments LIPID PANEL W REFLEX MEASURED LDL Routine 11/09/2016 8:34 AM LIGHT COIL WINDER Agatston coronary artery calcium score less than 100 XR MAMMO SCREENING BILATERAL (IA) Routine 08/30/2001 12:12 PM LIGHT COIL WINDER from Last 3 Months or Most Recently Relevant to Health Maintenance Results * (ABNORMAL) LIPID PANEL W REFLEX MEASURED LDL (11/09/2016 8:34 AM LIGHT COIL WINDER) CHOLESTEROL,TOTAL 293(H) 100 - 199 mg/dL 11/09/2016 4:01 PM [facility] COIL WIND[facility] TRAL LABORATORY TRIGLYCERIDES 126 <150 mg/dL 11/09/2016 4:01 PM LIGHT COIL WINDER [facility] Schoology [facility] TRAL LABORATORY HDL CHOLESTEROL 75 >40 mg/dL 7 4:01 PM LIGHT COIL WINDER [facility] TRAL LABORATORY NON-HDL CHOLESTEROL 218(H) <145 mg/dl 11/09/2016 4:01 PM LIGHT COIL WINDER [facility] Schoology [facility] TRAL LABORATORY CHOL/HDL RATIO 3.91 <4.50 11/09/2016 4:01 PM LIGHT COIL WINDER [facility] TRAL LABORATORY LDL CHOLESTEROL 193(H) <=130 mg/dL 11/09/2016 4:01 PM LIGHT COIL WINDER [facility] TRAL LABORATORY PATIENT STATUS FASTING 11/09/2016 4:01 PM LIGHT COIL WINDER [facility] Schoology [facility] TRAL LABORATORY Blood BLOOD SPECIMEN / Unknown Venipuncture / Unknown 11/09/2016 8:34 AM LIGHT COIL WINDER 11/09/2016 8:34 AM LIGHT COIL WINDER Erin Jin MD CHEMISTRY [facility] [address] [place] [address], [place] * XR MAMMO SCREENING BILATERAL (08/30/2001 12:12 PM LIGHT COIL WINDER) MAMMOGRAM negative - yearly follow up Anatomical Region Laterality Modality BREASTS, Breast Left, Breast Right Bilateral Mammography 08/30/2001 12:1 2 PM LIGHT COIL WINDER Narrative 03/20/2004 7:34 PM CDT Ordered by an unspecified provider. Other Clinical Staff MAMMO from Last 3 Months or Most Recently Relevant to Health Maintenance Care Teams Analytics Developer Relationship Specialty Start Date End Date [facility] PCP - General 04/22/15 Erin Jin MD [address] [place] [address] Consulting Physician Cardiovascular Disease 04/02/20
[2024-04-27 19:43] LABS: Basophils Absolute Auto 0.04 K/uL (0.00-0.30); Basophils Percent Auto 0.5 % (0.0-3.0); Eosinophils Absolute Auto 0.16 K/uL (0.00-0.50); Eosinophils Percent Auto 2.2 % (0.0-7.0); Hematocrit 44.9 % (33.0-51.0); Lymphocytes Absolute Auto 2.81 K/uL (0.90-2.90); Lymphocytes Percent Auto 37.8 % (20-44); Mean Corpuscular HGB Conc 33 gm/dL (32-36); Mean Corpuscular Hemoglobin 30 pg (26-34); Mean Corpuscular Volume 91 fL (80-100); Monocytes Percent Auto 8.9 % (0.0-11.0); Neutrophils Absolute Auto 3.77 K/uL (1.7-7.0); Neutrophils Percent Auto 50.6 % (42.0-72.0); Platelet Count* 267 K/uL (140-440); Red Blood Count 4.94 m/uL (4.00-5.20); White Blood Count* 7.44 K/uL (4.50-11.00)
[2024-04-27 19:46] LABS: Slide Review Reflex No
[2024-04-27 19:55] LABS: Albumin* 4.6 g/dL (3.3-5.0); Chloride* 104 mmol/L (96-114)
[2024-04-27 19:56] LABS: Potassium* 3.4 mmol/L (3.6-5.1); Sodium* 138 mmol/L (135-149)
[2024-04-27 19:58] LABS: Anion Gap 8 mEq/L (7-15); Aspartate Amino Transferase* 32 U/L (12-35); Bilirubin Direct* 0.3 mg/dL (0.0-0.5); Bilirubin Total* 0.6 mg/dL (0.1-1.5); Carbon Dioxide* 26 mmol/L (20-32); Creatinine* 0.8 mg/dL (0.5-1.5); Est. Creatinine Clearance* 57.83; Estimated Glomerular Filt Rate 81 ml/min; Total Protein* 7.5 g/dL (6.0-8.3)
[2024-04-27 19:59] LABS: Alanine Aminotransferase* 34 U/L (4-35); Alkaline Phosphatase* 96 U/L (40-150); Blood Urea Nitrogen* 16 mg/dL (7-30); Calcium* 9.5 mg/dL (8.4-10.6); Glucose* 146 mg/dL (60-115); Lipase* 254 U/L (23-300)
[2024-04-27 20:02] LABS: C Reactive Protein* < 0.5 mg/dL (0.5-1.0); D Dimer Quantitative* 0.36 ug/ml (0.00-0.50)
[2024-04-27 21:45] LABS: Troponin, Point-of-Care* 0.01 ng/ml (0.01-0.04)
== END 2024-04-27 22:02 | disposition home or self-care (01) ==
PROVIDERS: Emergency Provider Emergency Medicine; PCP Family Medicine
DX: R07.9 Chest pain, unspecified (principal)
CPT/HCPCS: 36415; 71045; 80048; 80076; 83690; 84484; 85025; 85379; 86140; 93005; 94761; 99284; 99285

== ENCOUNTER 2024-05-05 07:05 | Outpatient (CLI) | payer MEDICARE, BC, SELFPAY ==
--- OUTSIDE RECORDS SUMMARY | 2024-05-05 07:09 | XMS_ITS | Continuity of Care Document ---
Author Organization [facility] Address [address] [address] [place] [address] Phone Care Team Providers Care Ad Writer Name Role Phone Fracisco Neely MD Unavailable [...] Diagnoses Date Provider Providers Copied on Encounter [facility], [address] [address], [place], [place], [id number], [place] tel:[phone] [facility] No Information 9 Florinda Yap. [address] [facility], [place], [place], [id number] , [place]. tel:[phone] Offic/outpt [facility], [address] [address], [place], [place], [id number], tel:[phone] [facility] GI Symptoms or Concerns (chief complaint) Irritable bowel syndrome with diarrheaDietary counseling and surveillance 7 Haley Montiel . [address] [facility], [place], [place], [id number] , [place]. [phone] Referring Provider: Referral Self, USE FOR SELF REFERRALS. Offic/outpt E&m Estab Low-[facility], [address] [address], [place], [place], [id number], [place] tel:[phone] [facility] GI Symptoms or Concerns (chief complaint) Irritable bowel syndrome with diarrheaDietary counseling and surveillance 7 Haley Montiel . [address] [facility], [place], [place], [id number] , [place]. [phone] Referring Provider: Referral Self, USE FOR SELF REFERRALS. Offic/outpt [facility], [address] [address], [place], [place], [id number], [place] tel:[phone] [facility] GI Symptoms or Concerns (chief complaint) Irritable bowel syndrome with diarrheaDietary counseling and surveillanceEleva pelon blood-pressure reading, w/o diagnosis of htn 6 Haley Montiel . [address] [facility], [place], [place], [id number] , [place]. [phone] Offic/outpt E&m Estab Mod-hi 2 [facility], [address] [address], [place], [place], [id number], [place] tel:[phone] [facility] GI Symptoms or Concerns (chief complaint) Irritable bowel syndrome with diarrheaDietary counseling and surveillanceClif chilel (primary) hypertension 6 Haley Montiel . [address] [facility], [place], [id number] , [place]. tel: [phone] [facility], [address] [address], [place], [id number], [place] tel:[phone] [facility] Irritable bowel syndrome with diarrheaAbnormal findings on dx imaging of prt digestive tractDiverticulos is of large intestine without hemorrhageBenign neoplasm of descending colonIrritable bowel syndrome with diarrheaDvrtclos of lg int w/o perforation or abscess w/o bleeding 6 Haley Montiel . [address] [facility], [place], [id number] , [place]. tel: [phone] Offic Cons New/estab Mod [facility], [address] [address], [place], [id number], [place] tel:[phone] [facility] GI Symptoms or Concerns (chief complaint) Abnormal finding on GI tract imagingIrritable bowel syndrome with diarrheaDietary counseling and surveillance 6 Haley Montiel . [address] [facility], [place], [id number] , [place]. tel: [phone] Family History Family Member Type Diagnosis Age [...] the medication. She took another trip to [facility] and restarted it two pills twice [...] have a long trial of twice-daily or hftqx-lkyix-dntga dosing. She has not seen a significant [...]
--- OUTSIDE RECORDS SUMMARY | 2024-05-05 07:09 | XMS_ITS | Clinical Summary ---
Author Organization [employer] [facility] Address [place], [place] [address] Care Team Providers Care Director Business Management Name Role Phone [facility] Primary Care Provider Erin Pulido MD Unavailable [phone] Allergies Active Allergy Reactions Criticality Noted Date Comments Losartan Other - Describe In Comment Field 11/08/2016 doesn't feel right Qunggfr-Foh-Gzp Reductase Inhibitors Myalgia 11/08/2016 Hydrocodone-Acetaminop hen Nausea [...] ABDOMINAL, LEFT LOWER QUADRANT HTN (hypertension) Obesity Encounters Date Type Department Care Team Description 04/29/2024 Telephone [facility] [address] [place] [address] [place] [address] Remy Mazariegos MD Medical Records Received 04/27/2024 Orders Only [facility] Scanner 1 scan: (1-Ord) [facility], TROP, POC, 04/27/2024 04/27/2024 Orders Only [facility] Scanner 1 scan: (1-Ord) [facility], MULTIPLE LABS, 04/27/2024 04/27/2024 Orders Only [facility] Scanner 1 scan: (1-Ord) [facility], CHEST 1 VIEW, 04/27/2024 04/27/2024 Orders Only [facility] Scanner 1 scan: (1-Ord) 04/27/2024, 04/27/2024 04/24/2024 Orders Only [facility] Scanner 1 scan: (1-Ord) [facility], MULTIPLE LABS, 04/24/2024 from Last 3 Months Family History Medical History Relation Name Comments [...] Sex Assigned at Female 08/22/2021 10:16 AM VIDEO EDITING INTERN Gender Identity Female 08/22/2021 10:16 AM VIDEO EDITING INTERN Sexual Orientation Straight 08/22/2021 10 :16 AM VIDEO EDITING INTERN Obstetrics History Last Filed Vital Signs Vital Sign Reading Time Taken Comments Blood Pressure 128/76 08/24/2021 2:26 PM VIDEO EDITING INTERN tow er Pulse 61 08/24/2021 2:26 PM VIDEO EDITING INTERN Temperature 36.7 ??C (98.1 ??F) 12/14/2018 9:56 AM CS T Respiratory Rate 16 12/14/2018 12:07 PM VIDEO EDITING INTERN Oxygen Saturation 96% 08/24/2021 2:26 PM VIDEO EDITING INTERN Inhaled Oxygen Concentration - - Weight 97.5 kg (215 lb) 08/24/2021 2:26 PM VIDEO EDITING INTERN Height 174 cm (5' 8.5) 04/05/2020 8:47 AM CDT Body Mass Index 32.22 04/05/2020 8:47 AM CDT Plan of Treatment Upcoming Encounters Date Type Department Care Team (Late st Contact Info) Description 06/16/2024 3:30 PM CDT Office Visit [address] [place], [place] [id number] Remy Mazariegos MD [address] [place] [address] Health Maintenance Due Date Last Done Comments [...] 1 - PCV) 2022 COVID-19 vaccine series ( season) 2023 12/23/2020, 11/25/2020 Influenza for age 65+ 06/08/2024 Procedures Procedure Name Priority Date/Time Associated Diagnosis Comments SCAN-ELECTROCARDIOG NATTY EKG 04/27/2024 12:00 AM CDT SCAN-LABORATORY REPORT 04/27/2024 12:00 AM CDT SCAN-LABORATORY REPORT 04/27/2024 12:00 AM CDT SCAN-RADIOLOGY REPORT 04/27/2024 12:00 AM CDT SCAN-LABORATORY REPORT 04/24/2024 12:00 AM CDT LIPID PANEL W REFLEX MEASURED LDL Routine 11/09/2016 8:34 AM VIDEO EDITING INTERN Agatston coronary artery calcium score less than 100 XR MAMMO SCREENING BILATERAL (IA) Routine 08/30/2001 12:12 PM VIDEO EDITING INTERN from Last 3 Months or Most Recently Relevant to Health Maintenance Results * SCAN-RADIOLOGY REPORT (04/27/2024 12:00 AM CDT) Anatomical Region Laterality Modality Other Scanner OTHER * SCAN-LABORATORY REPORT (04/27/2024 12:00 AM CDT) Only the most recent of3 resultswithin the time period is included. Scanner OTHER * SCAN-ELECTROCARDIOGRAM EKG (04/27/2024 12:00 AM CDT) Scanner OTHER * (ABNORMAL) LIPID PANEL W REFLEX MEASURED LDL (11/09/2016 8:34 AM VIDEO EDITING INTERN) CHOLESTEROL,TOTAL 293(H) 100 - 199 mg/dL 11/09/2016 4:01 PM VIDEO EDITING INTERN [facility] Access [employer] [facility] TRIGLYCERIDES 126 <150 mg/dL 11/09/2016 4:01 PM VIDEO EDITING INTERN [facility] TRAL LABORATORY HDL CHOLESTEROL 75 >40 mg/dL 7 4:01 PM VIDEO EDITING INTERN [facility] TRAL LABORATORY NON-HDL CHOLESTEROL 218(H) <145 mg/dl 11/09/2016 4:01 PM VIDEO EDITING INTERN [facility] TRAL LABORATORY CHOL/HDL RATIO 3.91 <4.50 11/09/2016 4:01 PM VIDEO EDITING INTERN [facility] TRAL LABORATORY LDL CHOLESTEROL 193(H) <=130 mg/dL 11/09/2016 4:01 PM VIDEO EDITING INTERN [facility] TRAL LABORATORY PATIENT STATUS FASTING 11/09/2016 4:01 PM VIDEO EDITING INTERN [facility] TRAL LABORATORY Blood BLOOD SPECIMEN / Unknown Venipuncture / Unknown 11/09/2016 8:34 AM VIDEO EDITING INTERN 11/09/2016 8:34 AM VIDEO EDITING INTERN Erin Jin MD CHEMISTRY [facility] LAB[facility] [address] [place] [address], [place] * XR MAMMO SCREENING BILATERAL (08/30/2001 12:12 PM VIDEO EDITING INTERN) MAMMOGRAM negative - yearly follow up Anatomical Region Laterality Modality BREASTS, Breast Left, Breast Right Bilateral Mammography 08/30/2001 12:1 2 PM VIDEO EDITING INTERN Narrative 03/20/2004 7:34 PM CDT Ordered by an unspecified provider. Other Clinical Staff MAMMO from Last 3 Months or Most Recently Relevant to Health Maintenance Care Teams Director Business Management Relationship Specialty Start Date End Date [facility] PCP - General 04/22/15 Erin Jin MD [address] [place] [address] Consulting Physician Cardiovascular Disease 04/02/20
--- NOTE | 2024-05-05 07:15 | CRLHL7_ITS ---
For Patients: As a result of the Cures Act, medical imaging exams and procedure reports are released immediately into your electronic medical record. You may view this report before your referring provider. If you have questions, please contact your health care provider. Examination: US abdominal aorta Indication: PERSONAL HISTORY OF NICOTINE DEPENDENCY. Abdominal aortic aneurysm screening. Technique: Xiao scale and color Doppler images of the aorta and common iliac arteries are obtained. Comparison: None Findings: Proximal aorta: 2.3 x 2.6 cm Mid aorta: 1.9 x 2.0 cm Distal aorta: 1.8 x 1.8 cm Right common iliac artery: 1.2 x 1.2 cm Left common iliac artery: 1.3 x 1.2 cm Impression: No abdominal aortic aneurysm. Dictated by Ash Rivera MD @ 05/05/2024 8:21:12 AM (Electronically Signed)
== END 2024-05-05 07:06 | disposition home or self-care (01) ==
LOC: US 07:07
PROVIDERS: PCP Family Medicine; Visit Provider Family Medicine
DX: Z13.6 Encounter for screening for cardiovascular disorders (principal); Z87.891 Personal history of nicotine dependence
CPT/HCPCS: 76706

== ENCOUNTER 2024-12-16 13:58 | Emergency (ER) | payer MEDICARE, BC, SELFPAY ==
[2024-12-16 14:00] VITALS: BP 154/97; PULSE 91; RESP 18; TEMP 36.4; O2SAT 93; BMI 32.5
--- OUTSIDE RECORDS SUMMARY | 2024-12-16 14:01 | XMS_ITS | Clinical Summary ---
Author Organization [employer] [facility] Address [address] [place] [address] Care Team Providers Care Plugging Machine Operator Name Role Phone [facility] Primary Care Provider Erin Pulido MD Unavailable [phone] Allergies Active Allergy Reactions Criticality Noted Date Comments Losartan Other - Describe In Comment Field 11/08/2016 doesn't feel right Xopnfbo-Hey-Rvr Reductase Inhibitors Myalgia 11/08/2016 Hydrocodone-Acetaminop hen Nausea Only 01/28/2009 Medications VITAMIN B COMPLEX TAB 0 01/29/20 09 Active fluticasone, 50 mcg per actuation, nasal (FLONASE) 50 mcg/Actuation nasal spray USE 1 TO 2 SPRAYS INTO EACH NOSTRIL ONCE DAILY 16 g 6 03/14/20 10 Active aspirin 81 mg tablet Take 1 tablet by mouth once daily with a meal. 0 04/22/20 15 Active pravastatin (PRAVACHOL) 20 mg tabletIndications: Hyperlipidemia, unspecified hyperlipidemia type TAKE 1 TABLET BY MOUTH AT BEDTIME. 90 tablet 01/29/20 19 Active medication order composer Multivitamin take 1 tablet once daily 0 04/05/20 20 Active propranoloL (INDERAL) 40 mg tablet Take 40 mg by mouth once daily. Active amLODIPine (Norvasc) 5 mg tablet Take 1 Tablet (5 mg) by mouth once daily. 06/16/20 24 Active metoprolol succinate (Toprol XL) 25 mg Sustained-Release tabletIndications: HTN (hypertension) Take 1 Tablet (25 mg) by mouth once daily. 90 Tablet 4 06/16/20 24 Active Active Problems Problem Noted Date Diagnosed [...] 15 Smokeless Tobacco: Never Tobacco Cessation:Counseling Given: Not Answered Comments:pt reports she smoked from age [age], up to 3 ppd Alcohol Use Standard Drinks/Week Comments Yes 4 (1 standard drink = 0.6 oz pur e alcohol) Alcoholic Drinks/day: 0 Social Connections Answer Date Recorded Frequency of Communication with Friends and Fami ly Not on file 10/08/2021 Financial Resource Strain Answer Date R ecorded Difficulty of Paying Living Expenses Not on file 10/08/2021 Difficulty of Paying Living Expenses Not on file 10/08/2021 Comments No Sex and Gender Information Value Date Recorded Sex Assigned at Female 08/22/2021 10:16 AM LIME SLAKER Legal Sex Female 5:24 AM LIME SLAKER Gender Identity Female 08/22/2021 10:16 AM LIME SLAKER Sexual Orientation Straight 08/22/2021 10 :16 AM LIME SLAKER Obstetrics History Last Filed Vital Signs Vital Sign Reading Time Taken Comments Blood Pressure 136/100 06/16/2024 3:48 PM CDT Pulse 72 06/16/2024 3:48 PM CDT Temperature 36.7 C (98.1 F) 12/14/2018 9:56 AM LIME SLAKER Respiratory Rate 16 12/14/2018 12:0 7 PM LIME SLAKER Oxygen Saturation 95% 06/16/2024 3:48 PM CDT Inhaled Oxygen Concentration - - Weight 102.2 kg (225 lb 3.2 oz) 06/16/2024 3:48 PM CDT Height 174 cm (5' 8.5) 06/16/2024 3:48 PM CDT Body Mass Index 33.74 06/16/2024 3:48 PM CDT Plan of Treatment Health Maintenance Due Date Last Done Comments Tdap 1968 Depression screening for age 12+ 1969 Hepatitis C screening for age 18-79 1975 Tetanus booster 1977 Colonoscopy through age 75 2002 Mammogram for age 45-75 2002 08/30/2001 Pneumococcal series for age 50+ (1 of 1 - PCV) 2007 Zoster (shingles) series for age 50+ (1 of 2) 2007 Lipids for age 45-75 11/09/2021 11/09/2016, 12/24/19 10 DEXA/DXA scan for age 65+ 2022 COVID-19 vaccine series (2023- season) 2024 09/19/2021, 12/23/2020, 11/25/2020 Influenza Vaccine (#1) 2024 BMI (ht and wt on same day) for age 18+ 06/16/2025 06/16/2024, 04/05/2020 RSV vaccine for adults or pr egnancy (1 - 1-dose 75+ series) 2032 Procedures Procedure Name Priority Date/Time Associated Diagnosis Comments LIPID PANEL W REFLEX MEASURED LDL Routine 11/09/2016 8:34 AM LIME SLAKER Agatston coronary artery calcium score less than 100 XR MAMMO SCREENING BILATERAL (IA) Routine 08/30/2001 12:12 PM LIME SLAKER from Last 3 Months or Most Recently Relevant to Health Maintenance Results * (ABNORMAL) LIPID PANEL W REFLEX MEASURED LDL (11/09/2016 8:34 AM LIME SLAKER) CHOLESTEROL,TOTAL 293(H) 100 - 199 mg/dL 11/09/2016 4:01 PM LIME SLAKER [facility] [employer] [facility] TRAL LABORATORY TRIGLYCERIDES 126 <150 mg/dL 11/09/2016 4:01 PM LIME SLAKER [facility] [employer] [facility] TRAL LABORATORY HDL CHOLESTEROL 75 >40 mg/dL 7 4:01 PM LIME SLAKER [facility] [email or web address] TRAL LABORATORY NON-HDL CHOLESTEROL 218(H) <145 mg/dl 11/09/2016 4:01 PM LIME SLAKER [facility] TRAL LABORATORY CHOL/HDL RATIO 3.91 <4.50 11/09/2016 4:01 PM LIME SLAKER [facility] [employer] [facility] TRAL LABORATORY LDL CHOLESTEROL 193(H) <=130 mg/dL 11/09/2016 4:01 PM LIME SLAKER [email or web address] PATIENT STATUS FASTING 11/09/2016 4:01 PM LIME SLAKER [facility] LAB[facility] TRAL LABORATORY Blood BLOOD SPECIMEN / Unknown Venipuncture / Unknown 11/09/2016 8:34 AM LIME SLAKER 11/09/2016 8:34 AM LIME SLAKER Erin Jin MD CHEMISTRY Final Resu lt [facility] LAB[facility]ATORY-C[facility]AL LABORATORY [address] [place] [address], * XR MAMMO SCREENING BILATERAL (08/30/2001 12:12 PM LIME SLAKER) MAMMOGRAM negative - yearly follow up Anatomical Region Laterality Modality BREASTS, Breast Left, Breast Right Bilateral Mammography 08/30/2001 12:1 2 PM LIME SLAKER Narrative 03/20/2004 7:34 PM CDT Ordered by an unspecified provider. Other Clinical Staff MAMMO Final Resul t from Last 3 Months or Most Recently Relevant to Health Maintenance Insurance MEDICARE PB ONLY [facility] MEDICARE PART B HB ONLY Care Teams Plugging Machine Operator Relationship Specialty Start Date End Date [facility] PCP - General 04/22/15 Erin Jin MD [address] [facility] [address] [place] [address] Consulting Physician Cardiovascular Disease 04/02/20
[2024-12-16] MEDS: OXYCODONE 5 MG TABLET PO (14:36)
--- OUTSIDE RECORDS SUMMARY | 2024-12-16 14:38 | XMS_ITS | Clinical Summary ---
Author Organization [facility] Address [address] [place] [id number] Care Team Providers Care Sap Bobj Developer Name Role Phone [facility] Primary Care Provider Erin Pulido MD Unavailable [phone] Allergies Active Allergy Reactions Criticality Noted Date Comments Losartan Other - Describe In Comment Field 11/08/2016 doesn't feel right Tfbbmlq-Fuo-Fyr Reductase Inhibitors Myalgia 11/08/2016 Hydrocodone-Acetaminop hen Nausea [...] Sex Assigned at Female 08/22/2021 10:16 AM QUALITY ASSURANCE LAB TECHNICIAN Legal Sex Female 5:24 AM QUALITY ASSURANCE LAB TECHNICIAN Gender Identity Female 08/22/2021 10:16 AM QUALITY ASSURANCE LAB TECHNICIAN Sexual Orientation Straight 08/22/2021 10 :16 AM QUALITY ASSURANCE LAB TECHNICIAN Obstetrics History Last Filed Vital Signs Vital Sign Reading Time Taken Comments Blood Pressure 136/100 06/16/2024 3:48 PM CDT Pulse 72 06/16/2024 3:48 PM CDT Temperature 36.7 C (98.1 F) 12/14/2018 9:56 AM QUALITY ASSURANCE LAB TECHNICIAN Respiratory Rate 16 12/14/2018 12:0 7 PM QUALITY ASSURANCE LAB TECHNICIAN Oxygen Saturation 95% 06/16/2024 3:48 PM CDT [...] REFLEX MEASURED LDL Routine 11/09/2016 8:34 AM QUALITY ASSURANCE LAB TECHNICIAN [place] coronary artery calcium score less than 100 XR MAMMO SCREENING BILATERAL (IA) Routine 08/30/2001 12:12 PM QUALITY ASSURANCE LAB TECHNICIAN from Last 3 Months or Most Recently Relevant to Health Maintenance Results * (ABNORMAL) LIPID PANEL W REFLEX MEASURED LDL (11/09/2016 8:34 AM QUALITY ASSURANCE LAB TECHNICIAN) CHOLESTEROL,TOTAL 293(H) 100 - 199 mg/dL 11/09/2016 4:01 PM QUALITY ASSURANCE LAB TECHNICIAN [facility] TRIGLYCERIDES 126 <150 mg/dL 11/09/2016 4:01 PM QUALITY ASSURANCE LAB TECHNICIAN [facility] HDL CHOLESTEROL 75 >40 mg/dL 7 4:01 PM QUALITY ASSURANCE LAB TECHNICIAN [facility] NON-HDL CHOLESTEROL 218(H) <145 mg/dl 11/09/2016 4:01 PM QUALITY ASSURANCE LAB TECHNICIAN [facility] CHOL/HDL RATIO 3.91 <4.50 11/09/2016 4:01 PM QUALITY ASSURANCE LAB TECHNICIAN [facility] LDL CHOLESTEROL 193(H) <=130 mg/dL 11/09/2016 4:01 PM QUALITY ASSURANCE LAB TECHNICIAN [facility] PATIENT STATUS FASTING 11/09/2016 4:01 PM QUALITY ASSURANCE LAB TECHNICIAN [facility] Blood BLOOD SPECIMEN / Unknown Venipuncture / Unknown 11/09/2016 8:34 AM QUALITY ASSURANCE LAB TECHNICIAN 11/09/2016 8:34 AM QUALITY ASSURANCE LAB TECHNICIAN Erin Jin MD CHEMISTRY Final Resu lt [facility] [address] [place] [address], * XR MAMMO SCREENING BILATERAL (08/30/2001 12:12 PM QUALITY ASSURANCE LAB TECHNICIAN) MAMMOGRAM negative - yearly follow up Anatomical Region Laterality Modality BREASTS, Breast Left, Breast Right Bilateral Mammography 08/30/2001 12:1 2 PM QUALITY ASSURANCE LAB TECHNICIAN Narrative 03/20/2004 7:34 PM CDT Ordered by an unspecified provider. Other Clinical Staff MAMMO Final Resul t from Last 3 Months or Most Recently Relevant to Health Maintenance Insurance MEDICARE PB ONLY [facility] MEDICARE PART B HB ONLY Care Teams Sap Bobj Developer Relationship Specialty Start Date End Date [facility] PCP - General 04/22/15 Erin Jin MD [address] [facility] [address] [place] [address] Consulting Physician Cardiovascular Disease 04/02/20
--- NOTE | 2024-12-16 15:07 | ED_ITS ---
HPI - Extremity Injury (Upper) General Date Seen: 12/16/24 Chief Complaint: Extremity Pain/Injury, Upper Stated Complaint: Possible broken arm Time Seen by Provider: 12/16/24 14:06 Source: patient Mode of arrival: ambulatory Limitations: no limitations History of Present Illness HPI narrative: Patient is a 69-year-old female presenting to the emergency department for right elbow pain. She states she slipped on the ice about 13:00. She caught herself with her right arm and then hit the right elbow and right knee. Initially was having a lot of pain with her right knee but that has since improved and she has been able to ambulate. Most for concern is right elbow pain. She states the entire elbow is very painful and she cannot move it. Denies shoulder or wrist pain. Initially her arm felt numb but that has since resolved. Denies any other injuries. Denies hitting her head. No other concerns Related Data Home Medications ?Medication ?Instructions ?Recorded ?Confirmed metoprolol succinate 25 mg 25 mg PO DAILY 07/28/24 12/16/24 tablet,extended release 24 hr Previous Rx's ?Medication ?Instructions ?Recorded fluticasone propionate 50 1 spray intranasal QDAY #16 grams 02/04/24 mcg/actuation nasal spray,suspension (Allergy Relief (fluticasone)) aspirin 81 mg tablet,delayed 81 mg PO QDAY #90 tabs 03/31/24 release cholestyramine (with sugar) 4 gram 4 g PO BID #378 grams 03/31/24 oral powder pravastatin 40 mg tablet 40 mg PO QPM #90 tabs 03/31/24 amlodipine 5 mg tablet 5 mg PO QDAY HTN #90 tabs 04/29/24 trazodone 50 mg tablet 25 - 100 mg (0.5 - 2 x 50 mg) PO 07/28/24 QHS PRN insomnia #30 tabs celecoxib 100 mg capsule (Celebrex) 100 - 200 mg (1 - 2 x 100 mg) PO 10/09/24 BID PRN pain #90 caps Allergies Allergy/AdvReac Type Severity Reaction Status Date / Time hydrocodone Allergy Intermediate Vomiting Verified 12/16/24 14:06 losartan Allergy Intermediate Cough Verified 12/16/24 14:06 lisinopril Allergy Mild Cough Verified 12/16/24 14:06 boland juice Allergy Severe Difficulty Uncoded 11/10/24 15:10 Breathing Hydrochlorothiazide / Allergy Unknown Dizziness Uncoded 11/10/24 15:10 triamterene Review of Systems Narrative: Pertinent systems reviewed and were negative unless stated in HPI PFSH PFSH Medical History Post herpetic neuralgia ?B02.29 - Other postherpetic nervous system involvement (ICD-10) Tubular adenoma of colon ?D12.6 - Benign neoplasm of colon, unspecified (ICD-10) Migraine headache (04/22/10) ?G43.909 - Migraine, unspecified, not intractable, without status migrainosus (ICD-10) Mammogram declined ?Z53.20 - Procedure and treatment not carried out because of patient's decision for unspecified reasons (ICD-10) 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) ?Z91.89 - Other specified personal risk factors, not elsewhere classified (ICD-10) History of benign breast biopsy (08/02/10) ?Z98.890 - Other specified postprocedural states (ICD-10) History of bacterial pneumonia ?Z87.01 - Personal history of pneumonia (recurrent) (ICD-10) Surgical History History of hysterectomy (04/22/10) ?Z90.710 - Acquired absence of both cervix and uterus (ICD-10) History of colonoscopy with polypectomy ?Z98.890 - Other specified postprocedural states (ICD-10) ?Z86.010 - Personal history of colonic polyps (ICD-10) History of cholecystectomy (04/22/10) ?Z90.49 - Acquired absence of other specified parts of digestive tract (ICD- 10) History of appendectomy (08/02/10) ?Z90.49 - Acquired absence of other specified parts of digestive tract (ICD- 10) Family History Mother Breast cancer Stroke Father Coronary artery disease Social History Narrative: Does not use illicit drugs Former smoker Occasional alcohol consumption What is your current living situation?: I presently have a place to live Problems where you live: no known problems In the past 12 months, utilities in danger of being shut off: no In past 12 months, lack of transportation kept you from medical appts, meetings, work, or getting things needed for daily living: no In the past 12 mos, have been you worried that your food would run out before you had money to buy more?: never true In the past 12 mos, the food you bought just didn't last and you didn't have money to buy more?: never true Smoking Status: Never smoker How often do you have a drink containing alcohol: 4 or more times a week AUDIT-C Alcohol total score: 4 Non-prescribed substance use: denies use How often does anyone, including family, friends and others, physically hurt you : never How often does anyone, including family, friends and others, insult or talk down to you: never How often does anyone, including family, friends and others, threaten you with harm: never How often does anyone, including family, friends and others, scream or curse at you: never Exam Narrative: Exam Narrative: Const: Well-nourished, Well-developed, in mild distress Eyes: PERRL, no conjunctival injection, and symmetrical lids HENT: Atraumatic external nose and ears. Moist mucous membranes. CVS: Radial pulses 2+ bilaterally MSK: Tenderness and swelling noted to right elbow diffusely. No other tenderness noted to rest of upper extremities. Mild swelling and tenderness noted to right knee. Most of the tenderness seems to be in the medial joint line. No other injuries noted Skin: Warm, Dry. No rashes or lesions. Neuro: Normal Muscle tone, No focal neurological deficits. Psych: Awake, Alert, & Oriented x3. Appropriate mood and affect. Const: Vital Signs, click to edit/add: Vital Signs - 24 hr 12/16/24 14:00 Temperature 97.6 F Pulse Rate [Right Pulse Oximeter] 91 Respiratory Rate 18 Blood Pressure [Le ft Upper Arm] 154/97 H Pulse Oximetry 93 Oxygen Delivery Me thod Room Air Course Vital Signs Vital signs: Initial Vital Signs Temperature 97.6 F 12/16/24 14:00 Temperature Source Temporal Artery Scan 12/16/24 14:00 Pulse Rate 91 12/16/24 14:00 Pulse Rhythm Regular 12/16/24 14:00 Pulse Strength 3+ Normal 12/16/24 14:00 Respiratory Rate 18 12/16/24 14:00 Blood Pressure 154/97 H 12/16/24 14:00 Blood Pressure Mean 116 H 12/16/24 14:00 Blood Pressure Position Sitting 12/16/24 14:00 Pulse Oximetry 93 12/16/24 14:00 Oxygen Delivery Method Room Air 12/16/24 14:00 Vital Signs Temperature 97.6 F 12/16/24 14:00 Pulse Rate 91 12/16/24 14:00 Respiratory Rate 18 12/16/24 14:00 Blood Pressure 154/97 H 12/16/24 14:00 Pulse Oximetry 93 12/16/24 14:00 Oxygen Delivery Method Room Air 12/16/24 14:00 Temperature 97.6 F 12/16/24 14:00 Pulse Rate 91 12/16/24 14:00 Respiratory Rate 18 12/16/24 14:00 Blood Pressure 154/97 H 12/16/24 14:00 Pulse Oximetry 93 12/16/24 14:00 Oxygen Delivery Method Room Air 12/16/24 14:00 Medications Administered Medications: Discontinued Medications Generic Name Dose Route Start Last Admin Trade Name Freq PRN Reason Stop Dose Admin Oxycodone HCl 5 mg 12/16/24 14:27 12/16/24 14:36 Oxycodone 5 Mg Tablet PO 12/16/24 14:28 5 mg ONCE ONE Administration MDM - Extremity Injury (Upper) MDM Narrative Medical decision making narrative: Patient 69-year-old female presenting for right elbow and knee pain. She is ambulating well. Will x-ray the right knee. Also x-ray the right elbow. No other injuries noted on my exam. Will give her a pill of oxycodone for pain. Right knee x-ray shows no acute fractures as reviewed by myself the radiologist. There is some soft tissue swelling. X-ray of the right elbow shows a nondisplaced radial head fracture. Her pain is tall brought this time and she was placed in a long-arm posterior splint. She will follow-up with orthopedics. Discharged her home with oxycodone via instymeds. Imaging Data X-ray right knee: Attestation: I have reviewed the pertinent imaging results. Radiologist's impression: Moderate lateral and prepatellar soft tissue swelling with degenerative changes of the joint space. No evidence of displaced fracture. Dictated by Miquel Rivera MD @ 12/16/2024 3:14:43 PM Right Elbow x-ray: Radiologist's impression: Nondisplaced fracture of the radial head with large joint effusion. Dictated by Miquel Rivera MD @ 12/16/2024 3:13:34 PM Discharge Plan Discharge Clinical Impression: Fracture of radial head, right, closed Patient Disposition: Home, Self-Care Condition: Stable Instructions: Elbow Fracture (ED) Additional Instructions: Take oxycodone as needed for pain. You can also take Tylenol ibuprofen. pharmacy retail support specialist the oxycodone via instymeds. Follow-up with [facility]. Call them at . Return to emergency department for new or worsening symptoms. Prescriptions: No Action amlodipine 5 mg tablet 5 mg PO QDAY Qty: 90 3RF aspirin 81 mg tablet,delayed release (DR/EC) 81 mg PO QDAY Qty: 90 3RF pravastatin 40 mg tablet 40 mg PO QPM Qty: 90 3RF cholestyramine (with sugar) 4 gram powder 4 g PO BID Qty: 378 12RF Rx Instructions: administer w/meal; avoid other meds within 1hr before or 4-6hr after dose metoprolol succinate 25 mg tablet extended release 24 hr 25 mg PO DAILY trazodone 50 mg tablet 25 - 100 mg PO QHS PRN (Reason: insomnia) Qty: 30 12RF fluticasone propionate [Allergy Relief (fluticasone)] 50 mcg/actuation spray,suspension 1 spray intranasal QDAY Qty: 16 12RF Rx Instructions: administer into each nostril celecoxib [Celebrex] 100 mg capsule 100 - 200 mg PO BID PRN (Reason: pain) Qty: 90 1RF Follow Up/Referrals: Jenna Maki MD [Primary Care Provider] - Stand Alone Forms: [facility] Info Instructions Procedures Orthopedic Splinting/Casting Right elbow: Side: right Upper Extremity Injury Location: elbow Upper extremity immobilizer: posterior splint Applied by clinician: / Conclusion: patient tolerated procedure
== END 2024-12-16 15:55 | disposition home or self-care (01) ==
PROVIDERS: Emergency Provider Student in an Organized Health Care Education/Training Program; PCP Family Medicine
DX: S52.124A Nondisplaced fracture of head of right radius, initial encounter for closed fracture (principal); W00.9XXA Unspecified fall due to ice and snow, initial encounter
CPT/HCPCS: 29105; 73080; 73562; 99283; A9270

== ENCOUNTER 2025-03-20 10:29 | Outpatient (CLI) | payer MEDICARE, BC, SELFPAY | END 2025-03-20 10:30 | disposition home or self-care (01) | PROVIDERS: PCP Family Medicine; Visit Provider Family Medicine | DX: I10 Essential (primary) hypertension (principal); E78.5 Hyperlipidemia, unspecified | CPT/HCPCS: 80053; 80061; 82043; 82570 ==

== ENCOUNTER 2025-04-09 09:57 | Outpatient (CLI) | payer MEDICARE, BC, SELFPAY ==
--- NOTE | 2025-04-09 10:45 | CRLHL7_ITS ---
For Patients: As a result of the Century Cures Act, medical imaging exams and procedure reports are released immediately into your electronic medical record. You may view this report before your referring provider. If you have questions, please contact your health care provider. INDICATION: Elevated liver enzymes COMPARISON: none TECHNIQUE: Real time gutierres scale imaging and color Doppler analysis was performed of the right upper quadrant. FINDINGS: Liver echotexture is diffusely increased. No intrahepatic mass. The liver measures 13.8 cm. There is a normal appearance of the hepatic IVC and proximal abdominal aorta. There is no evidence of ascites. The gallbladder is absent. The common bile duct is of normal size and measures 5 mm in diameter at the level of the adina hepatis. The pancreas appears normal. There is no evidence of a stone or hydronephrosis within the right kidney. The right kidney measures 10.3 cm in length. IMPRESSION: Severe hepatic steatosis. Status post cholecystectomy. Remainder unremarkable. Dictated by Ash Rivera MD @ 04/09/2025 4:49:55 PM (Electronically Signed)
== END 2025-04-09 09:58 | disposition home or self-care (01) ==
LOC: US 09:58
PROVIDERS: PCP Family Medicine; Visit Provider Family Medicine
DX: R74.8 Abnormal levels of other serum enzymes (principal); K76.0 Fatty (change of) liver, not elsewhere classified
CPT/HCPCS: 76705

== ENCOUNTER 2025-06-25 10:00 | Outpatient (RCR) | payer MEDICARE, BC, SELFPAY ==
--- NOTE | 2025-04-30 14:42 | PT.OPEX ---
PT [place] Outpatient Eval PT [facility] Outpatient Eval Start: 04/28/25 13:31 Freq: Status: Active Protocol: Document 04/30/25 07:03 MLS (Rec: 04/30/25 14:41 MLS [id number]) E-signed By Traci Mederos DPT Physical Therapy Outpatient Evaluation Insurance Information Recert Due Date 07/28/25 Insurance Name Medicare B Medical Diagnosis N39.3 Stress incontinence due to pelvic organ prolapse Treating Diagnosis stress incontinence Bacterial vaginal infection urgency Referring MD Dr. Maki Subjective Subjective Patient is a 69 year old female who presents to physical therapy with signs and symptoms consistent with stress incontinence and urgency. She states that they are age related. She states that they have been going on a long time. Urinary- Leakage (day/night): no, if have to go, sometimes doesn 't make it there, nothing at night Freq of leakage: with cough or sneeze, urgenvy Protection worn: pantyliner - period kind, very thin - work 95% of time Severity of leakage (amount): makes it to toilet usually Activity that causes leakage (laughing, coughing, sneezing, kelley in door, running water etc): when she see's the commode, running water sometimes, coughing Delay of urination: no Urinary urgency (any incontinence): yes Strain to start/stop urine stream: no Hydration/fluid intake: good water intake, lately no coffee, some pop or carbonated water - normally not caffeinated Daytime urination (how often): 6-7 Nocturia: 1-2 if drinks past 7 Dysuria (pain w urination): no Post-void dribble: yes Pressure/heaviness: sometimes- rarely 3-4 times per year Triggers: none that she knows of Observation (color, odor, burning, blood, weak stream): no Bowel- Frequency: terrible stomach issues since late 20s, once gallbladder removed got really bad [place] chart: 5, vegetarian for 20 years, did not help stomach issues, lactose free/no dairy Constipation/Diarrhea: on and off Observation (mucus. blood): no Do you feel bowels fully evacuate with BM: yes Fecal leakage: no Fecal urgency: recently 4-5 months Protection used: panty Straining with BM: no Pain with BM: no Do you use pressure with hands to assist with BM: yes Flatus incontinence: yes, lately Abdominal/rectal pain or symptoms: heaviness in abdomen Do foods increase or decrease symptoms: dairy (raw veggies or cooked are better) Do you take bowel supplements/laxatives: no Fiber intake: good Diet/food intolerances: dairy Sexual- Are you sexually active: yes What does sex activity look like for you (penetration, dryness etc): once or twice, dryness Pain with sex (location, penetration, orgasm, after): no Leakage with intercourse: no Marinoff scale (rate pain): no Abuse: no Menstrual History- Date of last period: unknown Painful periods (clotting): endometriosis Regular cycles (how long): horrible Menopause age: medically induced in her early 40's, natural early 50's and still waiting for it to end - Number of pregnancies: 3 Number of deliveries: 3 Vaginal or : vaginal Length of labor/pushing: yes, lots of problems with the third, placenta ripped away from uterus Forceps or Vacuum: no Tearing or episiotomy: yes both, tubes tied after daughter was born Other- Pain with gynecological exam: no Any chronic yeast infections: yes, but stopped after hysterectomy Chronic UTIs: no STIs: no Vaginal dryness: yes Bacterial infection now - antibiotic resistant, on third round of antibiotics Meds taken for bladder or diuretics: no Surgical PMHx-hysterectomy, gallbladder and appendix removal, tubes tide PMHx- hypertension, arthritis Current exercise- no Orthopedic issues-B knee pain, LBP (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) Pain Comments Today: 0/10 on a 0-10 pain scale with 10 = extreme pain Current Work Status Retired Occupation IT Precautions Weight Bearing Full Weight Bearing Status Therapy Limitations/ Not Limited Systems Review Objective Other/Pertinent Movement screen- Objective SLS: no pain Lumbar Posture: decreased lordosis Pelvic Posture (ASIS/PSIS sup/inf, rotation Ant/Pst): anterior rotation Sacral Posture (forward/backward torsion): no Hip PROM: WNL LUMBAR ROM: WNL, min dec, mod dec, sev dec Flexion: min dec Extension: min dec Right Sidebend: min dec Left Sidebend: min dec Right Rotation: min dec Left Rotation: min dec LE MMT Hip flexion: R 4/5 L 4/5 Hip Extension: R 4/5 L 4/5 Hip abduction: R 4/5 L 4/5 knee extension: R 4+/5 L 4+/5 Knee Flexion: R 4+/5 L 4+/5 Other tests: Coordination: decreased contraction Breathing: chest/neck breathing. decreased posterior and lateral ribcage mvmt with inhalation Linea Alba: doming SPECIAL TESTS Straight leg raise: neg B Crossed straight leg raise: neg B Slump test: neg B Quadrant test: neg B SI tests Distraction: neg Thigh thrust: neg Compression: neg Sacral Thrust: neg HIP (R/L): FELIPE: neg B FADIR: neg B Murray compression Test: neg B Functional Test Pelvic Floor Questionnaire Performed & Score Bladder Bowel 04/21 Prolapse Sexual function Assessment Assessment/ Pt is a 69 year old female who presents with concerns Impression of stress incontinence and urgency. Patient also has notable objective findings including limited ROM, tenderness to palpation, and decreased strength which are also likely contributing to the problem. Patient is a good candidate for skilled therapy to target deficits described above. Skilled PT intervention is necessary for use of therapeutic exercise manual therapy, neuromuscular re-education, gait training, and therapeutic activity. Functional impairments include difficulty with: exercising, walking, and ADLS. See appropriate sections of PT eval for complete list of goals and POC. D/C plan and criteria is for pt to achieve the goals as listed below or until max rehab potential is met. Pt was agreeable with plan of care and goals established. Primary Functional exercising Limitations walking ADLs Plan of Care Rehabilitation Good Potential Physical Therapy URINE INCONTINENCE / WEAKNESS GOALS Goals STG (within 4-6 weeks) 1) Pt will demonstrate proper coordination of motor recruitment patterns for PF then TA activation during isometric activation while maintaining diaphragmatic breathing pattern 2)Pt will recall at least 4 strategies to improve pressure management in order to reduce instances of incontinence outside PT sessions 3) Pt will report reduced urinary leakage episodes no more than once per day for improved health of vaginal tissues LTG (within 10-12 weeks) 1) Pt will demonstrate proper coordination of motor recruitment patterns for PF then TA activation during dynamic UE/LE movements in all postures while maintaining diaphragmatic breathing pattern 2)Pt will demonstrate ability to complete at least 10 quick contractions of PFM with full relaxation between reps in order to reduce incontinence with increases in IAP 3) Pt will demonstrate improved PFM contraction of at least 4/5 on Laycock scale 4) Pt will report reduced urinary leakage episodes no more than two per week for improved health of vaginal tissues 5)Pt will report absent urinary leakage with cough, sneeze, jump. 6) Pt will demonstrate PFQ subscale score 50> for improved quality of life. Coordination/ Referral Source Communication With Treatment Plan/ Joint Mobilization,Manual Therapy,Neuromuscular Re-ed, Direct Interventions Therapeutic Activities,Therapeutic Exercises Patient Will Be Independently Progressing Discharged From Therapy Evaluation Billing Untimed Code 45 Treatment Minutes Complexity Low Certification Information Provider Signature Yes Required Provider Signature POC & Medical Necessity Shows Agreement With Physician NPI Number Write NPI# Here Physician Comment/ : Change Physician Signature Please Sign/Date Here & Date Requested
== END 2025-08-10 16:27 | disposition home or self-care (01) ==
PROVIDERS: PCP Family Medicine; Visit Provider Family Medicine
DX: N39.46 Mixed incontinence (principal); A49.9 Bacterial infection, unspecified; Z51.89 Encounter for other specified aftercare
CPT/HCPCS: 97110; 97161; 97530

== ENCOUNTER 2025-08-05 10:40 | Outpatient (CLI) | payer MEDICARE, BC, SELFPAY | END 2025-08-05 10:41 | disposition home or self-care (01) | LOC: FRMREF 10:41 | PROVIDERS: PCP Family Medicine; Visit Provider Family Medicine | DX: R09.89 Other specified symptoms and signs involving the circulatory and respiratory systems (principal) | CPT/HCPCS: 86765 ==